=== PATIENT | male | born 1950 | race Caucasian/White ===

== ENCOUNTER 2021-04-19 13:38 | Day surgery (SDC) | payer MEDICARE ==
[~2021-04-19] VITALS: Ht 180.3 cm; Wt 71.3 kg
[2021-04-19 14:16] VITALS: BP 96/63
[2021-04-19] MEDS ORDERED: CHLORHEXIDINE 15 ML UDC PO ONE (14:30)
[2021-04-19] MEDS ORDERED: LACTATED RINGERS 1,000 ML IV SCH (14:30)
[2021-04-19] MEDS ORDERED: SERT-331 PO (14:33)
[2021-04-19] MEDS ORDERED: MELO7.5T31 PO (14:33)
[2021-04-19] MEDS ORDERED: OMEG-170 PO (14:33)
[2021-04-19] MEDS ORDERED: PROSTATE PLUS (14:33)
[2021-04-19] MEDS ORDERED: LISI5TAB7 PO (14:33)
[2021-04-19] MEDS ORDERED: VITA1TAB19 PO (14:33)
[2021-04-19] MEDS ORDERED: MULTIVITAMIN (14:33)
[2021-04-19] MEDS ORDERED: ATOR20TA86 PO (14:33)
[2021-04-19] MEDS ORDERED: METF500T17 PO (14:33)
[2021-04-19] MEDS ORDERED: EPINEPHRINE 1 MG/ML, 1ML ONE (15:11)
[2021-04-19] MEDS ORDERED: BUPIVACAINE/PF 0.5% ONE (15:11)
[2021-04-19 15:14] LABS: BASOPHILS % (AUTO) 1 % (0-1); EOSINOPHILS % (AUTO) 4 % (1-7); LYMPHOCYTES % (AUTO) 32 % (22-44); MEAN CORPUSCULAR HEMOGLOBIN 30.8 pg (27.5-34.5); MEAN CORPUSCULAR HGB CONC 34.1 g/dL (33.2-36.2); MEAN PLATELET VOLUME 6.7 fL (7.4-10.4); MONOCYTES % (AUTO) 8 % (2-9); NEUTROPHILS % (AUTO) 56 % (42-75); PLATELET COUNT 263 x10^3/uL (130-400); RED BLOOD COUNT 4.81 x10^6/uL (4.38-5.82); RED CELL DISTRIBUTION WIDTH 13.3 % (9.4-14.8)
[2021-04-19 15:17] LABS: ANION GAP 6 mmol/L (5-15); CALCIUM 9.3 mg/dL (8.5-10.1); CHLORIDE 102 mmol/L (98-107); CREATININE 0.98 mg/dL (0.7-1.3)
[2021-04-19] MEDS ORDERED: SUCCINYLCHOLINE 20 MG/ML, 10ML ONE (15:31)
[2021-04-19] MEDS ORDERED: CEFAZOLIN 1,000 MG ONE (15:31)
[2021-04-19] MEDS ORDERED: ONDANSETRON 2MG/ML, 2ML ONE (15:31)
[2021-04-19] MEDS ORDERED: PROPOFOL 10 MG/ML, 20ML ONE (15:31)
[2021-04-19] MEDS ORDERED: FENTANYL PF 100 MCG/2ML ONE ×2 (15:34→15:57)
[2021-04-19] MEDS ORDERED: DIAZEPAM 5 MG/ML, 2ML IVPush PRN (16:30)
[2021-04-19] MEDS ORDERED: MEPERIDINE/PF 25MG/0.5ML IVPush PRN (16:30)
[2021-04-19] MEDS ORDERED: PROMETHAZINE 25 MG/ML, 1ML IV PRN (16:30)
[2021-04-19] MEDS ORDERED: ALBUTEROL SULFATE 2.5 MG/3 ML NPPB PRN (16:30)
[2021-04-19] MEDS ORDERED: FENTANYL PF 100 MCG/2ML IV PRN (16:30)
[2021-04-19] MEDS ORDERED: hydrALAzine 20 MG/ML, 1ML IV PRN (16:30)
[2021-04-19] MEDS ORDERED: ACETAMINOPHEN 325 MG TABLET PO PRN (16:30)
[2021-04-19] MEDS ORDERED: KETOROLAC 30 MG/1 ML IV PRN (16:30)
[2021-04-19] MEDS ORDERED: LABETALOL 5MG/ML, 20ML IV PRN (16:30)
[2021-04-19] MEDS ORDERED: OXYcodone 5 MG/5 ML ORAL.SOL UDC PO PRN (16:30)
[2021-04-19] MEDS ORDERED: HYDROmorphone 2 MG/ML, 1ML IVPush PRN (16:30)
[2021-04-19] MEDS ORDERED: HYDR-2214 PO (16:36)
== END 2021-04-19 18:00 | disposition home or self-care (01) ==
LOC: OR 13:38
PROVIDERS: ATTEND Surgery
DX: L72.3 Sebaceous cyst (principal); I10 Essential (primary) hypertension; E78.5 Hyperlipidemia, unspecified; E11.9 Type 2 diabetes mellitus without complications; Z20.822 Contact with and (suspected) exposure to COVID-19; Z79.1 Long term (current) use of non-steroidal anti-inflammatories (NSAID); Z79.84 Long term (current) use of oral hypoglycemic drugs; Z79.899 Other long term (current) drug therapy; Z87.891 Personal history of nicotine dependence
CPT/HCPCS: 11426; 12031; 36415; 80048; 85025; 87635; 88304; 93005; J0171; J0330; J0690; J2405; J2704; J3010; J7120; 88305